=== PATIENT | male | born 1955 | race American Indian/Alaskan Native ===

== ENCOUNTER 2017-07-18 15:03 | Emergency (ER) | payer OTHER ==
[2017-07-18 15:10] VITALS: BP 167/98
--- NOTE | 2017-07-18 17:06 | Emergency Department Report ---
Chief Complaint: Earache Stated Complaint: RINGING IN RIGHT EAR/LOSS OF HEARING Time Seen by Provider: 07/18/17 16:44 - HPI History of Present Illness: Patient is a 7-year-old male with a past history of hypertension and sinus irritation who is presenting with right sided ear ringing as well as increased sinus pain. Patient states that for the past 3 weeks he has had ringing of the ears. Patient denies vertigo symptoms. He does feel as though he has pressure in the right ear and has been having some right facial pain. Pain is mild distress for out of 10 in severity and aching and throbbing worse when he is laying flat. Patient states that he has had some bloody drainage from the nose when he blows his nose. Present for the last several days. - ROS Review of Systems: History of systems is negative social [place]'s elements in HPI nursing notes have been reviewed and past medical history is significant only for hypertension - Exam Vital Signs: Vital Signs 07/18/17 15:07 Temperature 98.6 F Pulse Rate 82 Respiratory 18 Rate Blood Pressure 167/98 O2 Sat by Pulse 100 Oximetry Physical Exam: On exam patient is in no acute distress HEENT the right TM is bulging however there is no erythema and no purulent fluid behind the TM there is no mastoid tenderness lungs clear to auscultation chest S1-S2 no murmurs gallops rubs abdomen is soft nontender skin exam is normal neuro exam in all extremities no acute process A and O 3 MSE screening note: Focused history and physical exam performed. Due to findings the following was ordered: ED Medical Decision Making - Medical Decision Making 7-year-old -British male who is presenting with sinusitis symptoms for the past several weeks patient will be started on Augmentin and prednisone and will be discharged home with follow-up with ENT ED Disposition for MSE Clinical Impression: Sinusitis Disposition: DC- TO HOME OR SELFCARE Is pt being admited?: No Does the pt Need Aspirin: No Condition: Fair Instructions: Sinusitis (ED) Prescriptions: Amoxicillin/Potassium Clav [Augmentin 875-125 Tablet] 1 each PO TID #21 tablet predniSONE [Deltasone] 20 mg PO QDAY #5 tab Referrals: PRIMARY CARE, [Primary Care Provider] - 3-5 Days
== END 2017-07-18 17:17 | disposition home or self-care (01) ==
LOC: ED 15:03
DX: J32.9 Chronic sinusitis, unspecified (principal)
CPT/HCPCS: 99281

== ENCOUNTER 2020-04-14 21:57 | Emergency (ER) | payer OTHER | END 2020-04-14 22:15 | disposition left against medical advice (07) | LOC: ED 21:57 | DX: S09.90XA Unspecified injury of head, initial encounter (principal); Z53.21 Procedure and treatment not carried out due to patient leaving prior to being seen by health care provider; X58.XXXA Exposure to other specified factors, initial encounter; Y93.89 Activity, other specified; Y92.89 Other specified places as the place of occurrence of the external cause; Y99.8 Other external cause status ==